=== PATIENT | female | born 1985 | race Two or more races ===

== ENCOUNTER 2016-12-29 15:41 | Emergency (ER) | payer BC, MEDICAID ==
[~2016-12-29] VITALS: Ht 154.9 cm; Wt 49.9 kg
[2016-12-29 15:58] VITALS: BP 117/74
[2016-12-29] MEDS ORDERED: KETOROLAC TROMETH 60MG/2ML VIAL IM ONE (16:45)
[2016-12-29] MEDS ORDERED: ONDANSETRON HCL 4 MG/2 ML VIAL IM ONE (16:45)
[2016-12-29] MEDS ORDERED: HYDROcodone-ACET 10/325MG TAB PO ONE (17:15)
== END 2016-12-29 17:19 | disposition home or self-care (01) ==
LOC: ER 15:45
DX: N39.0 Urinary tract infection, site not specified (principal); N31.9 Neuromuscular dysfunction of bladder, unspecified; Z87.440 Personal history of urinary (tract) infections; Z88.0 Allergy status to penicillin; Z91.041 Radiographic dye allergy status
CPT/HCPCS: 74176; 81025; 96372; 99284; J1885; J2405

== ENCOUNTER 2016-12-30 11:04 | Emergency (ER) | payer MEDICAID ==
[~2016-12-30] VITALS: Ht 154.9 cm; Wt 49.9 kg
[2016-12-30 11:29] VITALS: BP 110/71
[2016-12-30 12:34] LABS: Basophils # (auto) 0 uL; Basophils % (auto) 0.3 % (0.0-2.0); CONDITION Y; Eosinophils # (auto) 0 uL; Hematocrit 44.1 % (36.0-46.0); Hemoglobin 14.9 g/dL (12.2-16.2); Lymphocytes % (auto) 14.6 % (10.0-50.0); Mean Corpuscular Hemoglobin 31.3 pg (28.0-32.0); Mean Corpuscular Hgb Conc. 33.8 g/dL (32.0-36.0); Mean Corpuscular Volume 92.4 fL (80.0-100.0); Mean Platelet Volume 10.8 fL (7.4-10.4); Monocytes # (auto) 0.1 uL; Monocytes % (auto) 2.1 % (0.0-12.0); Neutrophils # (auto) 5.6 uL; Platelet Count (auto) 256 10^3/uL (140-450); Red Cell Distribution Width 13.7 % (11.6-16.0); White Blood Cell 6.8 10^3/uL (4.4-10.8)
[2016-12-30 13:05] LABS: Albumin 4.4 g/dL (3.4-5.0); BUN/Creatinine Ratio 14.5; Bilirubin, Total 0.4 mg/dL (0.2-1.0); Potassium 3.2 mmol/L (3.5-5.1); Total Protein 8.3 g/dL (6.4-8.2)
== END 2016-12-30 14:45 | disposition left against medical advice (07) ==
LOC: ER 11:04
DX: R11.2 Nausea with vomiting, unspecified (principal); M54.5 Low back pain; Z53.21 Procedure and treatment not carried out due to patient leaving prior to being seen by health care provider
CPT/HCPCS: 36415; 80053; 85025